=== PATIENT | female | born 1995 | race Caucasian/White ===

== ENCOUNTER 2021-01-04 12:22 | Emergency (ER) | payer OTHER, SELFPAY ==
--- OUTSIDE RECORDS SUMMARY | 2021-01-04 12:25 | XMS REPORT | Continuity of Care Document ---
:1995 Author Organization [facility] t Address [address] [place] [address] Care Team Providers Name Role Phone Unavailable Unavailable Unavailable Payers Payer Name Policy Type Policy Number Effective Date Expiration Date S ource Problems This patient has no known problems. Allergies, Adverse Reactions, Alerts Allergy Allergy Status Severity Reaction(s) Onset Inactive Treating Comm ents Source Name Type Date Date Clinician No Known DA Active U [facility]ie 11-29 [place] s 00:00: d 00 [facility] Medications This patient has no known medications. Procedures This patient has no known procedures. Results Test Description Test Time Test Comments Results Result Comments Source UA RFLX MICR CULT IF INDICATED 2019-11-30 02:25:00 Test Item Value Reference Range Interpretation Comme nts UA COLOR (test code = COLU) YELLOW discript YEL/STRAW UA APPEARANCE (test code = APPU) CLEAR discript CLEAR UA GLUCOSE DIPSTICK (test code = DGLUU) NEGATIVE mg/dL NEG UA BILIRUBIN DIPSTICK (test code = BILU) NEGATIVE mg/dL NEG UA KETONE DIPSTICK (test code = KETU) NEGATIVE mg/dL NEG UA SPECIFIC GRAVITY (test code = SGU) 1.025 SG 1.005-1.030 UA BLOOD DIPSTICK (test code = QUAN) TRACE mg/DL NEG A UA PH DIPSTICK (test code = DAVIE) 6.0 pH UNITS 5.0-7.0 UA PROTEIN DIPSTICK (test code = PROU) NEGATIVE mg/dL NEG UA UROBILINIOGEN DIPSTICK (test code = URO) 0.2 mg/dL <2.0 UA NITRITE DIPSTICK (test code = ARNOL) NEGATIVE SCREEN NEG UA LEUKOCYTE ESTERASE DIPSTICK (test code = LEUU) NEGATIVE Leuk/mcL NEGATIVE UA WBC (test code = WBCU) 1-3 #WBC/HPF 0-3 UA RBC (test code = RBCU) 1-3 #RBC/HPF 0-3 UA BACTERIA (test code = BACU) 1+ /HPF NONE-TRACE A UA CULTURE NEEDED? (test code = UACULT) NO, WBC<10 Criteria Culture CHK SOURCE OF URINE: CLEAN CATCHIndication for culture: Suprapubic PainUR HCG [id number] 02:25:00 Test Item Value Reference Range Interpretation Comments UR HCG QUAL (test code = HCGQLU) NEGATIVE NEGATIVE SOURCE OF URINE: CLEAN CATCHIndication for culture: Suprapubic PainUA RFLX MICR CULT IF [id number] 02:17:00 Test Item Value Reference Range Interpretation Comments UA COLOR (test code = COLU) YELLOW discript YEL/STRAW UA APPEARANCE (test code = CLEAR discript CLEAR APPU) UA GLUCOSE DIPSTICK (test NEGATIVE mg/dL NEG code = DGLUU) UA BILIRUBIN DIPSTICK (test NEGATIVE mg/dL NEG code = BILU) UA KETONE DIPSTICK (test NEGATIVE mg/dL NEG code = KETU) UA SPECIFIC GRAVITY (test 1.025 SG 1.005-1.030 code = SGU) UA BLOOD DIPSTICK (test TRACE mg/DL NEG A code = QUAN) UA PH DIPSTICK (test code = 6.0 pH UNITS 5.0-7.0 DAVIE) UA PROTEIN DIPSTICK (test NEGATIVE mg/dL NEG code = PROU) UA UROBILINIOGEN DIPSTICK 0.2 mg/dL <2.0 (test code = URO) UA NITRITE DIPSTICK (test NEGATIVE SCREEN NEG code = ARNOL) UA LEUKOCYTE ESTERASE NEGATIVE Leuk/mcL NEGATIVE DIPSTICK (test code = LEUU) UA CULTURE NEEDED? (test Criteria Culture CHK code = UACULT) SOURCE OF URINE: CLEAN CATCHIndication for culture: Suprapubic PainUR HCG [id number] 02:17:00 Test Item Value Reference Range Interpretation Comments UR HCG QUAL (test code = HCGQLU) NEGATIVE SOURCE OF URINE: CLEAN CATCHIndication for culture: Suprapubic PainUA RFLX MICR CULT IF [id number] 02:17:00 Test Item Value Reference Range Interpretation Comments UA COLOR (test code = COLU) YELLOW discript YEL/STRAW UA APPEARANCE (test code = CLEAR discript CLEAR APPU) UA GLUCOSE DIPSTICK (test NEGATIVE mg/dL NEG code = DGLUU) UA BILIRUBIN DIPSTICK (test NEGATIVE mg/dL NEG code = BILU) UA KETONE DIPSTICK (test NEGATIVE mg/dL NEG code = KETU) UA SPECIFIC GRAVITY (test 1.025 SG 1.005-1.030 code = SGU) UA BLOOD DIPSTICK (test TRACE mg/DL NEG A code = QUAN) UA PH DIPSTICK (test code = 6.0 pH UNITS 5.0-7.0 DAVIE) UA PROTEIN DIPSTICK (test NEGATIVE mg/dL NEG code = PROU) UA UROBILINIOGEN DIPSTICK 0.2 mg/dL <2.0 (test code = URO) UA NITRITE DIPSTICK (test NEGATIVE SCREEN NEG code = ARNOL) UA LEUKOCYTE ESTERASE NEGATIVE Leuk/mcL NEGATIVE DIPSTICK (test code = LEUU) UA CULTURE NEEDED? (test Criteria Culture CHK code = UACULT) SOURCE OF URINE: CLEAN CATCHIndication for culture: Suprapubic PainUR HCG [id number] 02:17:00 Test Item Value Reference Range Interpretation Comments UR HCG QUAL (test code = HCGQLU) NEGATIVE NEGATIVE SOURCE OF URINE: CLEAN CATCHIndication for culture: Suprapubic Pain
[2021-01-04 14:20] LABS: Urine Blood Negative (Negative); Urine Glucose Negative (Negative); Urine Protein Negative (Negative); Urine Specific Gravity 1.015 (1.005-1.030)
[2021-01-04 14:40] LABS: Absolute Lymphocytes (CBC) 2.1 K/uL (0.7-4.9); Basophils % 0.6 % (0-1.3); Hematocrit 38.5 % (36.0-45.0); MPV 8.9 fL (7.6-11.3); RBC Red Blood Cell Count 4.56 M/uL (3.86-4.86)
[2021-01-04 14:46] LABS: Urine Specific Gravity/Preg 1.015 (1.005-1.030)
[2021-01-04 14:47] LABS: ALT/SGPT 83 U/L (12-78); AST/SGOT 37 U/L (15-37); Albumin 3.6 g/dL (3.4-5.0); Alkaline Phosphatase 53 U/L (45-117); BUN Blood Urea Nitrogen 8 mg/dL (7-18); Bicarbonate 28 mmol/L (21-32); Bilirubin Direct < 0.1 mg/dL (0-0.2); Bilirubin Total 0.4 mg/dL (0.2-1.0); Glucose Level 77 mg/dL (74-106); Lipase 156 U/L (73-393); Sodium Level 141 mmol/L (136-145)
[2021-01-04 15:13] LABS: Urine Bacteria <20 /HPF (<20); Urine RBC <5 /HPF (NONE SEEN)
[2021-01-04] MEDS ORDERED: KETOROLAC 30 MG/ML INJ ONE (16:15)
--- NOTE | 2021-01-04 16:40 | RAD REPORT ---
EXAM DESCRIPTION: CTAbdomen Pelvis W Contrast - 01/04/2021 4:33 pm CLINICAL HISTORY: Abdominal pain. ABD PAIN COMPARISON: No comparisons TECHNIQUE: Biphasic CT imaging of the abdomen and pelvis was performed with 100 ml non-ionic IV cont rast. All CT scans are performed using dose optimization technique as appropriate and may include automated exposure control or mA/KV adjustment according to patient size. FINDINGS: The lung bases are clear. The liver, spleen, pancreas, adrenal glands and kidneys are within normal limits. No bowel obstruction, free air, free fluid or abscess. The appendix is normal. No evidence of signi ficant lymphadenopathy. No suspicious bony findings. IMPRESSION: No acute intra-abdominal or pelvic finding.
--- NOTE | 2021-01-04 16:46 | EDPHYS ---
Physician Documentation [facility] Name: Susana Edwards Age: 25 yrs Sex: Female : 1995 Arrival Date: 01/04/2021 Time: 12:25 Bed 17 Private MD: ED Physician Mykel Rizo HPI: 01/04 16:49 This 25 yrs old Female presents to ER via Ambulatory with complaints of Flank jr8 Pain. 16:49 The patient complains of pain in the right flank. Onset: The symptoms/episode jr8 began/occurred suddenly, 2 day(s) ago. Modifying factors: The symptoms are alleviated by nothing. the symptoms are aggravated by nothing. Associated signs and symptoms: The patient has no apparent associated signs or symptoms. Severity of pain: At its worst the pain was moderate in the emergency department the pain has improved. The patient has not experienced similar symptoms in the past. The patient has not recently seen a physician. Patient stated that she has had an on/off intermittent severe cramp to right flank region that has since gone away. Now feels soar but was concerned and wanted to be evaluated. Denies any other symptoms at that time . RN SPINE: 12:55 LMP 12/28/2020 em Historical: - Allergies: 12:55 No Known Allergies; em - Home Meds: 12:55 None [Active]; em - PMHx: 12:55 None; em - PSHx: 12:55 None; em - Immunization history:: Adult Immunizations up to date. - Social history:: Smoking status: Patient denies any tobacco usage or history of. ROS: 16:49 Eyes: Negative for injury, pain, redness, and discharge, ENT: Negative for injury, jr8 pain, and discharge, Neck: Negative for injury, pain, and swelling, Cardiovascular: Negative for chest pain, palpitations, and edema, Respiratory: Negative for shortness of breath, cough, wheezing, and pleuritic chest pain, Abdomen/GI: Negative for abdominal pain, nausea, vomiting, diarrhea, and constipation, MS/Extremity: Negative for injury and deformity, Skin: Negative for injury, rash, and discoloration, Neuro: Negative for headache, weakness, numbness, tingling, and seizure. 16:49 Back: Positive for flank pain, on the right. Exam: 16:49 Constitutional: This is a well developed, well nourished patient who is awake, alert, jr8 and in no acute distress. Cardiovascular: Regular rate and rhythm with a normal S1 and S2. No gallops, murmurs, or rubs. Normal PMI, no JVD. No pulse deficits. Respiratory: Lungs have equal breath sounds bilaterally, clear to auscultation and percussion. No rales, rhonchi or wheezes noted. No increased work of breathing, no retractions or nasal flaring. Abdomen/GI: Soft, non-tender, with normal bowel sounds. No distension or tympany. No guarding or rebound. No evidence of tenderness throughout. Back: No spinal tenderness. No costovertebral tenderness. Full range of motion. Skin: Warm, dry with normal turgor. Normal color with no rashes, no lesions, and no evidence of cellulitis. MS/ Extremity: Pulses equal, no cyanosis. Neurovascular intact. Full, normal range of motion. Neuro: Awake and alert, GCS 15, oriented to person, place, time, and situation. Cranial nerves II-XII grossly intact. Motor strength 5/5 in all extremities. Sensory grossly intact. Cerebellar exam normal. Normal gait. Vital Signs: 12:53 BP 130 / 70; Pulse 65; Resp 18; Temp 98.6(O); Pulse Ox 100% on R/A; Weight 54.43 kg; em Height 5 ft. 2 in. (157.48 cm); Pain 6/10; 15:28 BP 116 / 61; Pulse 78; Resp 18; Pulse Ox 100% ; tr6 12:53 Body Mass Index 21.95 (54.43 kg, 157.48 cm) em MDM: 13:48 Patient medically screened. jr8 16:44 Data reviewed: vital signs, nurses notes, lab test result(s), radiologic studies, CT jr8 scan. Data interpreted: Pulse oximetry: on room air is 100 %. Interpretation: normal. Counseling: I had a detailed discussion with the patient and/or guardian regarding: the historical points, exam findings, and any diagnostic results supporting the discharge/admit diagnosis, lab results, radiology results, the need for outpatient follow up, a family practitioner, to return to the emergency department if symptoms worsen or persist or if there are any questions or concerns that arise at home. Special discussion: Based on the patient's Hx, exam, and Dx evaluation, there is no indication for emergent surgery or inpatient Tx. It is understood by the patient/guardian that if the Sx's persist or worsen they need to return immediately for re-evaluation. 01/04 13:48 Order name: Basic Metabolic Panel; Complete Time: 15: 8 01/04 13:48 Order name: CBC with Diff; Complete Time: 15: [facility] 01/04 13:48 Order name: Hepatic Function; Complete Time: 15:01/04 13:48 Order name: Lipase; Complete Time: 15: 8 01/04 13:48 Order name: Urine Microscopic Only; Complete Time: 15: [facility] 01/04 14:20 Order name: Urine Dipstick-Ancillary; Complete Time: 15: [facility] 01/04 13:48 Order name: IV Saline Lock; Complete Time: 14:8 01/04 13:48 Order name: Labs collected and sent; Complete Time: 14: [facility] 01/04 13:48 Order name: Urine Test (obtain specimen); Complete Time: 14:8 01/04 13:48 Order name: Urine Dipstick-Ancillary (obtain specimen); Complete Time: 14: [facility] 01/04 14:32 Order name: Labs - recollect needed: recollect urine; Complete Time: 14:48 01/04 14:32 Order name: Urine --Ancillary (enter results); Complete Time: 15: 01/04 15:27 Order name: CT Abd/Pelvis - IV Contrast Only; Complete Time: 16:44 jr8 Administered Medications: 16:00 Drug: Ketorolac 15 mg Route: IVP; Site: right antecubital; tr6 16:49 Follow up: Response: No adverse reaction; Pain is decreased tr6 Disposition: 01/05 06:19 Co-signature as Attending Physician, Mykel Rizo MD I agree with the assessment and kdr plan of care. Disposition: 01/04/21 16:45 Discharged to Home. Impression: Abdominal and pelvic pain. - Condition is Stable. - Discharge Instructions: Abdominal Pain, Adult. - Medication Reconciliation Form, Thank You Letter, Antibiotic Education, Prescription Opioid Use form. - Follow up: Private Physician; When: 2 - 3 days; Reason: Recheck today's complaints, Continuance of care, Re-evaluation by your physician. - Problem is new. - Symptoms have improved. Signatures: Dispatcher [employer] Candy Harvey Kevin, MD MD kdr Munoz, Edgar, RN RN Christiano Villarreal PA PA jr8 Syeda Resendiz RN RN tr6 Corrections: (The following items were deleted from the chart) 01/04 16:59 16:45 01/04/2021 16:45 Discharged to Home. Impression: Abdominal and pelvic pain. tr6 Condition is Stable. Forms are Medication Reconciliation Form, Thank You Letter, Antibiotic Education, Prescription Opioid Use. Follow up: Private Physician; When: 2 - 3 days; Reason: Recheck today's complaints, Continuance of care, Re-evaluation by your physician. Problem is new. Symptoms have improved. jr8
--- NOTE | 2021-01-04 16:46 | ER ---
Nurse's Notes [facility] Name: Susana Edwards Age: 25 yrs Sex: Female : 1995 Arrival Date: 01/04/2021 Time: 12:25 Bed 17 Private MD: Diagnosis: Abdominal and pelvic pain Presentation: 01/04 12:53 Chief complaint: Patient states: RLQ pain that started yesterday, with nausea, denies em fever or dysuria, diarrhea. Coronavirus screen: Client denies travel out of the [place] in the last 14 days. Ebola Screen: Patient negative for fever greater than or equal to 101.5 degrees Fahrenheit, and additional compatible Ebola Virus Disease symptoms Patient denies exposure to infectious person. Patient denies travel to an Ebola-affected area in the 21 days before illness onset. No symptoms or risks identified at this time. Initial Sepsis Screen: Does the patient meet any 2 criteria? No. Patient's initial sepsis screen is negative. Does the patient have a suspected source of infection? No. Patient's initial sepsis screen is negative. Risk Assessment: Do you want to hurt yourself or someone else? Patient reports no desire to harm self or others. Onset of symptoms was January 04, 2021. 12:53 Method Of Arrival: Ambulatory em 12:53 Acuity: OSKAR 3 em [employer] COOK: 12:55 LMP 12/28/2020 em Historical: - Allergies: 12:55 No Known Allergies; em - Home Meds: 12:55 None [Active]; em - PMHx: 12:55 None; em - PSHx: 12:55 None; em - Immunization history:: Adult Immunizations up to date. - Social history:: Smoking status: Patient denies any tobacco usage or history of. Screenin:23 Abuse screen: Denies threats or abuse. Denies injuries from another. Nutritional tr6 screening: No deficits noted. Tuberculosis screening: No symptoms or risk factors identified. Fall Risk None identified. Assessment: 14:22 General: Appears in no apparent distress. Behavior is calm, cooperative, appropriate tr6 for age. Pain: Complains of pain in c/o sharp RLQ pain beginning last night Pain radiates to radiates to right lower back. Neuro: No deficits noted. Cardiovascular: No deficits noted. Respiratory: No deficits noted. GI: Bowel sounds Abdomen is tender to palpation in tenderness in lower abdomen. : No deficits noted. EENT: No deficits noted. Derm: No deficits noted. Musculoskeletal: No deficits noted. 15:27 Reassessment: Patient appears in no apparent distress at this time. No changes from tr6 previously documented assessment. Patient and/or family updated on plan of care and expected duration. Pain level reassessed. Patient is alert, oriented x 3, equal unlabored respirations, skin warm/dry/pink. pt OOB independently to bathroom. 16:06 Reassessment: Patient and/or family updated on plan of care and expected duration. Pain tr6 level reassessed. pt pending CT. verbal support given. pt aware of wait time. 16:24 Reassessment: pt transferred to CT via wheelchair. tr6 16:37 Reassessment: pt returned from CT. tr6 Vital Signs: 12:53 BP 130 / 70; Pulse 65; Resp 18; Temp 98.6(O); Pulse Ox 100% on R/A; Weight 54.43 kg; em Height 5 ft. 2 in. (157.48 cm); Pain 6/10; 15:28 BP 116 / 61; Pulse 78; Resp 18; Pulse Ox 100% ; tr6 12:53 Body Mass Index 21.95 (54.43 kg, 157.48 cm) em ED Course: 12:25 Patient arrived in ED. rg4 12:55 Triage completed. em 12:55 Arm band placed on. em 13:48 Christiano Morgan PA is PHCP. jr8 13:48 Mykel Rizo MD is Attending Physician. jr8 14:21 Urine Microscopic Only Sent. tr6 14:21 Basic Metabolic Panel Sent. tr6 14:21 CBC with Diff Sent. tr6 14:21 Hepatic Function Sent. tr6 14:21 Lipase Sent. tr6 14:23 Patient has correct armband on for positive identification. Bed in low position. Call tr6 light in reach. Side rails up X 1. 14:23 No provider procedures requiring assistance completed. Inserted saline lock: 18 gauge tr6 in right antecubital area, using aseptic technique. 14:41 Urine --Ancillary (enter results) Sent. tr6 16:24 Syeda Resendiz RN is Primary Nurse. tw2 16:33 CT Abd/Pelvis - IV Contrast Only In Process Unspecified. EDMS 16:48 IV discontinued, intact, bleeding controlled, No redness/swelling at site. Pressure tr6 dressing applied. Administered Medications: 16:00 Drug: Ketorolac 15 mg Route: IVP; Site: right antecubital; tr6 16:49 Follow up: Response: No adverse reaction; Pain is decreased tr6 Outcome: 16:45 Discharge ordered by MD. main 16:49 Discharged to home ambulatory. tr6 16:49 Condition: good 16:49 Discharge instructions given to patient, results reviewed with pt by GEOVANY 16:59 Patient left the ED. tr6 Signatures: Dispatcher [employer] Dion Crawford RN RN Christiano Villarreal PA PA jr8 Maya Stauffer RN RN tw2 Nicki Wills 4 Syeda Resendiz RN RN tr6
[2021-01-04 17:14] VITALS: TEMP 98.6; O2SAT 100
[2021-01-04 17:16] VITALS: BP 116/61
== END 2021-01-04 16:59 | disposition home or self-care (01) ==
LOC: ER 12:22
DX: R10.2 Pelvic and perineal pain (principal)
CPT/HCPCS: 36415; 74177; 80048; 80076; 81003; 81015; 81025; 83690; 85025; 96374; 99284; Q9967